=== PATIENT | female | born 1965 | race Two or more races ===

== ENCOUNTER 2024-05-12 10:33 | Outpatient (CLI) | payer OTHER | END 2024-05-12 10:43 | disposition home or self-care (01) | LOC: MRI 10:33 | PROVIDERS: ATTEND Obstetrics & Gynecology Gynecologic Oncology | DX: C54.1 Malignant neoplasm of endometrium (principal) | CPT/HCPCS: 72197 ==

== ENCOUNTER 2024-05-19 07:43 | Outpatient (CLI) | payer OTHER | END 2024-05-19 07:44 | disposition home or self-care (01) | LOC: NUCLEAR 07:43 | PROVIDERS: ATTEND Obstetrics & Gynecology Gynecologic Oncology | DX: C54.1 Malignant neoplasm of endometrium (principal) ==